=== PATIENT | female | born 1935 | race African-American/Black ===

== ENCOUNTER 2017-05-10 08:43 | Emergency (ER) | payer MEDICARE ==
[~2017-05-10] VITALS: Ht 170.2 cm; Wt 70.0 kg
[2017-05-10] MEDS ORDERED: ACETAMINOPHEN 325MG TABLET PO STA (08:57)
[2017-05-10] MEDS ORDERED: SODIUM CHLORIDE 0.9% 1,000 ML IV ONE (08:57)
[2017-05-10 09:24] LABS: HEMATOCRIT. 42.4 % (36.0-48.0); HEMOGLOBIN. 14.2 g/dL (12.0-16.0); MEAN CORPUSCULAR HEMOGLOBIN 30.1 pg (28.0-32.0); MEAN CORPUSCULAR VOLUME 89.6 fL (81.0-99.0); MEAN PLATELET VOLUME 9.5 fl (7.4-10.4); PLATELET 139 x1000/uL (130-400); RED BLOOD CELL COUNT 4.73 mill/uL (4.2-5.4); RED CELL DISTRIBUTION WIDTH 14.3 % (11.6-14.6)
[2017-05-10 09:29] LABS: CHLORIDE 106 mEq/L (98-107)
[2017-05-10 09:35] LABS: PROTHROMBIN TIME 10.9 sec (9.4-11.6)
[2017-05-10 09:37] LABS: CARBON DIOXIDE 24 mEq/L (21-32)
[2017-05-10 10:22] LABS: PLATELET ESTIMATE NORMAL
[2017-05-10 11:11] VITALS: BP 129/73
== END 2017-05-10 11:23 | disposition home or self-care (01) ==
LOC: ER 08:55 → CANBEDREQ 16:30
DX: B34.9 Viral infection, unspecified (principal); F03.90 Unspecified dementia, unspecified severity, without behavioral disturbance, psychotic disturbance, mood disturbance, and anxiety
CPT/HCPCS: 36415; 71010; 80053; 83605; 85025; 85610; 87040; 93005; 96360; 96361; 99285; J7030